=== PATIENT | female | born 1955 | race Caucasian/White ===

== ENCOUNTER 2020-08-29 07:16 | Day surgery (SDC) | payer BC ==
[2020-08-28 08:42] VITALS: BMI 26.6
[~2020-08-29 07:16] MED LIST: LACTATED RINGERS 1,000 ML IV SCH; LIDOCAINE 1% (10MG/ML) FOR IV START INTRADERMA PRN
[2020-08-29 07:44] VITALS: TEMP 97
[2020-08-29] MEDS ORDERED: PROPOFOL 10 MG/ML 20 ML VIAL IV ONE (08:12)
--- NOTE | 2020-08-29 08:39 | P.PCN ---
Date of Procedure: 08/29/20 Description of Procedure: BRIEF HISTORY: Patient is a 64-year-old female presenting for outpatient colonoscopy for screening for malignant neoplasm colon. Family history of colon cancer in paternal grandmother. No change in bowel habits rectum. Last colonoscopy was in 2014. PROCEDURE PERFORMED: Colonoscopy. PREOPERATIVE DIAGNOSIS: Screening for malignancy thousand, last colonoscopy 2014, family history of colon cancer. ESTIMATED BLOOD LOSS: Minimal. IV sedation per Anesthesia. PROCEDURE: After informed consent was obtained, the patient, was brought into the endoscopy unit. IV sedation was administered by Anesthesia under continuous monitoring. Digital rectal examination was normal. Initially the Olympus CF-190 flexible video colonoscope was then inserted in the rectum, gradually advanced into the cecum without any difficulty. Careful examination was performed as the scope was gradually being withdrawn. Ileocecal valve and the appendiceal orifice were visualized and appeared normal. Prep was excellent. Mucosa of the cecum, ascending colon, transverse colon, descending colon, sigmoid colon, and rectum appeared normal. Retroflexion was performed in the rectum and no lesions were seen. The patient tolerated the procedure well. IMPRESSION: Normal-appearing colon from rectum to cecum and normal appearing terminal ileum. RECOMMENDATIONS: Findings of this examination were discussed with the patient and her family. Okay to resume diet. Okay to resume medications. Recommend repeat colonoscopy in 5 years for family history of colon cancer.
[2020-08-29 08:46] VITALS: RESP 16
[2020-08-29 09:01] VITALS: BP 110/58; PULSE 78
== END 2020-08-29 09:18 | disposition home or self-care (01) ==
LOC: ORWHC2ENDO 07:16
PROVIDERS: ATTEND Internal Medicine
DX: Z12.11 Encounter for screening for malignant neoplasm of colon (principal); Z86.010 Personal history of colon polyps; Z80.0 Family history of malignant neoplasm of digestive organs; E89.0 Postprocedural hypothyroidism; Z88.8 Allergy status to other drugs, medicaments and biological substances; Z98.890 Other specified postprocedural states; Z79.890 Hormone replacement therapy
CPT/HCPCS: J2704; G0105

== ENCOUNTER 2020-12-29 07:15 | Day surgery (SDC) | payer BC ==
[2020-12-26 09:54] VITALS: BMI 26.6
[~2020-12-29 07:15] MED LIST changes: +ACETAMINOPHEN TAB 500 MG TAB PO PRN; +DEXAMETHASONE SOD PHOSPHATE 4 MG/ML 1 ML VIAL IV ONE; +HEPARIN SODIUM,PORCINE/PF 5,000 UNIT/0.5 ML SYRINGE SQ PRN; +HYDROmorphone 0.5 MG/0.5 ML SYRINGE IVP PRN; +MIDAZOLAM 2 MG/2 ML VIAL IV PRN; +ONDANSETRON 4 MG/2 ML VIAL IVP ONE; +Pre Op ABX Message 1 EACH MISC MISCELLANE ONE
[2020-12-29] MEDS ORDERED: LIDOCAINE 1% INJ 10MG/ML (20 ML MDV) SQ ONE ×3 (08:50→11:17)
[2020-12-29 09:09] VITALS: TEMP 98.8
[2020-12-29] MEDS ORDERED: PROPOFOL 10 MG/ML 20 ML VIAL IV ONE (10:58)
[2020-12-29] MEDS ORDERED: MIDAZOLAM 2 MG/2 ML VIAL ONE (10:58)
[2020-12-29] MEDS ORDERED: fentaNYL (PF) 50 MCG/ML 2 ML AMP ONE (10:58)
[2020-12-29] MEDS ORDERED: SODIUM CHLORIDE 0.9% 100 ML with ceFAZolin 2,000 MG IV ONE ×2 (11:17)
[2020-12-29] MEDS ORDERED: NALOXONE 0.4 MG/ML 1 ML VIAL IV PRN (11:45)
--- NOTE | 2020-12-29 11:49 | P.OP ---
Date of Procedure: 12/29/20 Procedure(s) Performed: PREOPERATIVE DIAGNOSIS: Abnormal right mammogram POSTOPERATIVE DIAGNOSIS: Same PROCEDURE: Right Breast wire localization biopsy SURGEON: Blanche EBL: Minimal ANESTHESIA: Sedation plus local COMPLICATIONS: None OPERATIVE PROCEDURE: Patient was placed on the operating room table in the s upine position. The patient's breast was prepped and draped in usual sterile fashion. A curvilinear incision was made adjacent to the wire entrance site. I followed the wire down into the breast tissue. The breast tissue around the tip of the wire was fully excised using electrocautery. The specimen was sent for specimen radiogram. The clip was present within the specimen. The subcutaneous tissues were inspected. No bleeding was seen. The subcutaneous tissues were closed using 3-0 Vicryl sutures. The skin was closed using a running 4-0 Monocryl stitch. Skin glue and sterile dressings were applied. DISPOSITION: Stable to recovery room
[2020-12-29 11:51] VITALS: RESP 18
[2020-12-29 12:14] VITALS: BP 131/76; PULSE 78
--- NOTE | 2020-12-29 16:56 | MM ---
EXAMINATION TYPE: MG pre op needle loc RT, MG surgical specimen RT DATE OF EXAM: 12/29/2020 COMPARISON: 09/20/2020, 09/21/2020 CLINICAL HISTORY: 65-year-old female referred for right breast needle localization for high risk flat epithelial atypia and ADH. TECHNIQUE: Needle localization with wire placement and surgical excision of area of concern in the right breast. FINDINGS: The procedure of needle localization with wire placement and than surgical excision was explained to the patient. Benefits, alternatives, and risks were discussed. An informed consent was then obtained. The shortest pathway for procedure was chosen. Shortest pathway was a superior approach. The overlying skin was prepped and draped in usual sterile fashion. Lidocaine was used as anesthetic into the skin and subcutaneous tissue up to the level of area of concern. A 5 cm needle was used. It was placed via a superior approach under mammographic guidance. Subsequent 90 degrees mammogram show the needle to be in satisfactory position relative to the targeted clip. At this point, wire was placed and the needle was withdrawn. The wire was fixed to patient's skin. Images were marked for surgeon. The patient tolerated the procedure well without any immediate complication. The patient was kept in the radiology department for short stay after the procedure and then taken to surgery for surgical excision. Targeted clip, some scattered punctate calcifications, and wire are identified in specimen mammogram. The patient was kept in hospital for short stay after the procedure and then discharged home in stable condition. IMPRESSION: Successful, uncomplicated needle localization with wire placement and surgical excision of the region of biopsy-proven high risk lesions in the 12:00 right breast. Full pathology results to follow. Pathology Results: Benign RIGHT BREAST, NEEDLE LOCALIZATION EXCISION: Focal flat epithelial atypia (FEA), margins negative. Background fibrocystic changes including sclerosing adenosis with calcifications and previous biopsy site. Recommendation Follow up mammogram of the right breast in 6 months. SAMANTHA
== END 2020-12-29 12:54 | disposition home or self-care (01) ==
LOC: OR 07:15
PROVIDERS: ATTEND Surgery
DX: N60.11 Diffuse cystic mastopathy of right breast (principal); R92.1 Mammographic calcification found on diagnostic imaging of breast; R92.8 Other abnormal and inconclusive findings on diagnostic imaging of breast; Z98.890 Other specified postprocedural states; E89.0 Postprocedural hypothyroidism; Z80.3 Family history of malignant neoplasm of breast; Z83.3 Family history of diabetes mellitus; Z79.890 Hormone replacement therapy; Z88.8 Allergy status to other drugs, medicaments and biological substances
CPT/HCPCS: 19125; 88307; 76098; 19281; J2250; J1100; J2405; J0690; J2001; J3010; J2704; J1644

== ENCOUNTER → 2021-07-18 | Outpatient (CLI) | payer BC ==
--- NOTE | 2021-07-18 13:33 | MM ---
Reason for exam: additional evaluation requested from prior study. Last mammogram was performed 12 years and 3 months ago. History: Patient is postmenopausal, has history of high-risk lesion on a previous biopsy at age 64, and had first child at age 32. Family history of breast cancer in paternal cousin and breast cancer in maternal grandmother. Benign MG pre op needle loc RT of the right breast, December 29, 2020. Physical Findings: Nurse did not find any significant physical abnormalities on exam. MG 3D Diag Mammo W/Cad AAMIR Bilateral CC with magnification, LM with magnification, XCCL, and LM view(s) were taken. Prior study comparison: April 17, 2009, bilateral digital screening mammogram. March 17, 2008, bilateral digital screening mammogram. The breast tissue is heterogeneously dense. This may lower the sensitivity of mammography. Some new subtle distortion central 12 o'clock right breast likely surgical scar. Small group of calcifications central 7 o'clock right do not persist on magnification views. Grouped central calcifications left breast persists and are indeterminate. Biopsy recommended. These results were verbally communicated with the patient and result sheet given to the patient on 07/18/21. ASSESSMENT: Suspicious, BI-RAD 4 RECOMMENDATION: Stereotactic core biopsy of the left breast. (calcifications) Called office with mammographic findings and has scheduled an appointment for the patient for 09/06/21 at 11:[address] Mancia. Biopsy scheduled for 08/10/21 at 8:00. PRELIMINARY REPORT CALLED AND FAXED TO DR. MANCIA ON 07/18/21.
== END | disposition home or self-care (01) ==
LOC: RADMAMWWP 09:19
PROVIDERS: ATTEND Surgery
DX: R91.1 Solitary pulmonary nodule (principal); Z80.3 Family history of malignant neoplasm of breast
CPT/HCPCS: 77062; 77066

== ENCOUNTER → 2021-08-10 | Day surgery (SDC) | payer BC ==
[2021-08-10 07:32] VITALS: RESP 16
[2021-08-10 08:44] VITALS: BP 125/76; PULSE 66; TEMP 98
--- NOTE | 2021-08-10 09:49 | MM ---
EXAMINATION TYPE: MG stereo VAD BX LT DATE OF EXAM: 08/10/2021 COMPARISON: Prior mammogram July 18, 2021 and older studies CLINICAL HISTORY: Abnormal mammogram TECHNIQUE: Stereotactic guided core biopsy of left breast with clip placement and follow-up diagnostic 2 view mammogram. FINDINGS: The procedure of stereotactic guided core biopsy was explained to the patient. Benefits, alternatives, and risks were discussed. An informed consent was then obtained. The [facility] pathway for biopsy was chosen. Shortness pathway was medial approach. I performed the localization, then performed the remainder of the procedure. Overlying skin is cleansed with Betadine. Lidocaine is used as anesthetic. A vacuum assisted biopsy gun was used to obtain multiple core samples. The patient tolerated the procedure well without any immediate complication. The patient was kept in the radiology department for short stay after the procedure and then discharged home in stable condition. Targeted calcifications are identified in specimen mammogram. Post biopsy mammogram shows the clip to appear in satisfactory position relative to the targeted area of concern on the preprocedure images. IMPRESSION: SUCCESSFUL, UNCOMPLICATED STEREOTACTIC GUIDED CORE BIOPSY OF AREA OF CONCERN IN THE LEFT BREAST, FULL PATHOLOGY RESULTS TO FOLLOW. Low to intermediate index of suspicion noted at time of procedure. Pathology Results: High Risk LEFT BREAST, STEREOTACTIC CORE BIOPSY: Intraductal papilloma with calcifications. Background fibrocystic changes including sclerosing adenosis with calcifications, cysts, moderate usual type ductal hyperplasia, columnar cell change/columnar cell hyperplasia and apocrine metaplasia. Recommendation Surgical consult of the left breast. (consider open biopsy) MATTHEWD
== END ==
LOC: RADMAMWWP 07:01
PROVIDERS: ATTEND Surgery
DX: D24.2 Benign neoplasm of left breast (principal); N60.12 Diffuse cystic mastopathy of left breast; R92.1 Mammographic calcification found on diagnostic imaging of breast; N62 Hypertrophy of breast; N60.82 Other benign mammary dysplasias of left breast; R92.8 Other abnormal and inconclusive findings on diagnostic imaging of breast; Z88.8 Allergy status to other drugs, medicaments and biological substances
CPT/HCPCS: 88305; 19081; A4648; J2001

== ENCOUNTER 2021-09-03 06:15 | Day surgery (SDC) | payer BC ==
[2021-08-31 10:27] VITALS: BMI 25.4
[~2021-09-03 06:15] MED LIST changes: -DEXAMETHASONE SOD PHOSPHATE 4 MG/ML 1 ML VIAL IV ONE; -HYDROmorphone 0.5 MG/0.5 ML SYRINGE IVP PRN; -LACTATED RINGERS 1,000 ML IV SCH; -LIDOCAINE 1% (10MG/ML) FOR IV START INTRADERMA PRN; -MIDAZOLAM 2 MG/2 ML VIAL IV PRN; -ONDANSETRON 4 MG/2 ML VIAL IVP ONE
[2021-09-03] MEDS ORDERED: ONDANSETRON 4 MG/2 ML VIAL ONE (07:17)
[2021-09-03] MEDS ORDERED: LACTATED RINGERS 1,000 ML IV ONE (07:23)
[2021-09-03] MEDS ORDERED: LACTATED RINGERS 1,000 ML IV SCH (07:29)
[2021-09-03] MEDS ORDERED: DEXAMETHASONE SOD PHOSPHATE 4 MG/ML 1 ML VIAL IV ONE (07:29)
[2021-09-03] MEDS ORDERED: .fentaNYL (PF) 50 MCG/ML 2 ML AMP IV PRN (07:29)
[2021-09-03] MEDS ORDERED: ONDANSETRON 4 MG/2 ML VIAL IVP ONE (07:29)
[2021-09-03] MEDS ORDERED: ALPRAZolam 0.25 MG TAB PO PRN (07:29)
[2021-09-03] MEDS ORDERED: ALPRAZolam 0.25 MG TAB PO ONE (07:32)
[2021-09-03] MEDS ORDERED: LIDOCAINE 1% INJ 10MG/ML (20 ML MDV) SQ ONE (07:48)
[2021-09-03 08:03] VITALS: TEMP 98.6
[2021-09-03] MEDS ORDERED: .fentaNYL (PF) 50 MCG/ML 2 ML AMP ONE (10:01)
[2021-09-03] MEDS ORDERED: MIDAZOLAM 2 MG/2 ML VIAL ONE (10:01)
[2021-09-03] MEDS ORDERED: BUPIVACAINE (PF) 0.25% 30 ML VIAL SQ ONE ×3 (10:28→10:33)
[2021-09-03 11:15] VITALS: RESP 18
[2021-09-03] MEDS ORDERED: NALOXONE 0.4 MG/ML 1 ML VIAL IV PRN (11:15)
--- NOTE | 2021-09-03 11:17 | P.OP ---
Date of Procedure: 09/03/21 Procedure(s) Performed: PREOPERATIVE DIAGNOSIS: Abnormal left mammogram POSTOPERATIVE DIAGNOSIS: Same PROCEDURE: Left Breast wire localization biopsy SURGEON: Blanche EBL: Minimal ANESTHESIA: Sedation plus local COMPLICATIONS: None OPERATIVE PROCEDURE: Patient was placed on the operating room table in the sup ine position. The patient's breast was prepped and draped in usual sterile fashion. A curvilinear incision was made adjacent to the areola. Dissection through the subcutaneous tissues took place until the wire was reached. I followed the wire down into the breast tissue. The breast tissue around the tip of the wire was fully excised using electrocautery. The specimen was sent for specimen radiogram. The clip was present within the specimen. The subcutaneous tissues were inspected. No bleeding was seen. The subcutaneous tissues were closed using 3-0 Vicryl sutures. The skin was closed using a running 4-0 Monocryl stitch. Skin glue was then applied. DISPOSITION: Stable to recovery room
--- NOTE | 2021-09-03 11:28 | MM ---
EXAMINATION TYPE: MG pre op needle loc LT, MG surgical specimen LT DATE OF EXAM: 09/03/2021 COMPARISON: Stereotactic guided core biopsy August 10, 2021 and older studies. CLINICAL HISTORY: High risk lesion, Intraductal papilloma on recent stereotactic guided core biopsy TECHNIQUE: Needle localization with wire placement and surgical excision of area of concern in the le ft breast. FINDINGS: The procedure of needle localization with wire placement and than surgical excision was exp lained to the patient. Benefits, alternatives, and risks were discussed. An informed consent was th en obtained. The shortest pathway for procedure was chosen. Shortest pathway was medial approach. The overlying s kin was prepped and draped in usual sterile fashion. Lidocaine is used as anesthetic into the skin an d subcutaneous tissue up to the level of area of concern. A 7 cm needle was used. It was placed via a medial approach under mammographic guidance. Subsequent 90 degrees mammogram show the needle to b e in satisfactory position relative to the targeted area. At this point, wire was placed and the nee dle was withdrawn. The wire was fixed to patient's skin. Images were marked for surgeon. The patient tolerated the procedure well without any immediate complication. The patient was kept in the radiology department for short stay after the procedure and then taken to surgery for surgical e xcision. Targeted biopsy clip and wire are identified in specimen mammogram. The patient was kept i hospital for short stay after the procedure and then discharged home in stable condition. IMPRESSION: Successful, uncomplicated needle localization with wire placement and surgical excision o f targeted biopsy clip in the left breast, full pathology results to follow.
[2021-09-03 11:29] VITALS: BP 117/70; PULSE 55
== END 2021-09-03 11:41 | disposition home or self-care (01) ==
LOC: OR 06:15
PROVIDERS: ATTEND Surgery
DX: R92.8 Other abnormal and inconclusive findings on diagnostic imaging of breast (principal)
CPT/HCPCS: 19281; 76098; C1819; J2250; J1100; J2405; J2001; J3010; J1644

== ENCOUNTER → 2022-02-25 | Outpatient (CLI) | payer BC ==
--- NOTE | 2022-02-25 15:36 | MM ---
Reason for Exam: Follow-up at short interval from prior study. Last screening mammogram was performed 7 month(s) ago. Patient History: Menarche at age 18. First Full-Term at age 32. Late child-bearing (after 30). Postmenopausal. 09/03/2021, Lumpectomy on the Left side. 09/03/2021, High risk Core Biopsy on the left side. 08/10/2021, High risk Core Biopsy on the left side. 12/29/2020, Benign Core Biopsy on the right side. Maternal grandmother had breast cancer. Paternal cousin had breast cancer. Risk Values: Carmen 5 year model risk: 3.1%. NCI Lifetime model risk: 11.5%. Prior Study Comparison: 03/17/2008 Bilateral Screening Mammogram, [facility]. 04/17/2009 Bilateral Screening Mammogram, [facility]. 07/18/2021 Bilateral Diagnostic Mammogram, [facility]. Tissue Density: Left: The breast tissue is heterogeneously dense. This may lower the sensitivity of mammography. Findings: Analyzed By CAD. Postbiopsy changes left breast. No suspicious calcifications or masses. Overall Assessment: Benign, BI-RAD 2 Management: Screening Mammogram of both breasts in 6 months. A clinical breast exam by your physician is recommended on an annual basis and results should be correlated with mammographic findings. This exam should not preclude additional follow-up of suspicious palpable abnormalities. Results were given to the patient verbally at the time of exam. Electronically signed and approved by: Maikel Oliveira M.D. Radiologis
== END | disposition home or self-care (01) ==
LOC: RADMAMWWP 14:58
PROVIDERS: ATTEND Surgery
DX: R92.8 Other abnormal and inconclusive findings on diagnostic imaging of breast (principal); Z78.0 Asymptomatic menopausal state; Z80.3 Family history of malignant neoplasm of breast
CPT/HCPCS: 77061; 77065

== ENCOUNTER → 2022-09-02 | Outpatient (CLI) | payer BC ==
--- NOTE | 2022-09-03 07:29 | MM ---
Reason for Exam: Screening (asymptomatic). Last mammogram was performed 1 year(s) and 1 month(s) ago. Patient History: Menarche at age 18. First Full-Term at age 32. Late child-bearing (after 30). Postmenopausal. Patient has history of breast feeding. 09/03/2021, Lumpectomy on the Left side. 09/03/2021, High risk Core Biopsy on the left side. 08/10/2021, High risk Core Biopsy on the left side. 12/29/2020, Benign Core Biopsy on the right side. Maternal grandmother had breast cancer, age 72. Paternal cousin had breast cancer, age 51. Risk Values: Carmen 5 year model risk: 3.1%. NCI Lifetime model risk: 11.5%. Prior Study Comparison: 04/17/2009 Bilateral Screening Mammogram, [facility]. 07/18/2021 Bilateral Diagnostic Mammogram, [facility]. 02/25/2022 Left MG 3D diag mammo w/cad LT, [facility]. Tissue Density: The breast tissue is heterogeneously dense. This may lower the sensitivity of mammography. Findings: Analyzed By CAD. There is no suspicious group of microcalcifications or new suspicious mass in either breast. Benign round calcifications within both breasts. Postbiopsy changes in the left breast. No significant change from prior exams. Overall Assessment: Benign, BI-RAD 2 Management: Screening Mammogram of both breasts in 1 year. A clinical breast exam by your physician is recommended on an annual basis and results should be correlated with mammographic findings. Electronically signed and approved by: Praveen Moreno D.O.
== END | disposition home or self-care (01) ==
LOC: RADMAMWWP 07:09
PROVIDERS: ATTEND Surgery
DX: Z12.31 Encounter for screening mammogram for malignant neoplasm of breast (principal); Z78.0 Asymptomatic menopausal state; Z80.3 Family history of malignant neoplasm of breast
CPT/HCPCS: 77063; 77067

== ENCOUNTER → 2023-09-03 | Outpatient (CLI) | payer BC, MEDICARE ==
--- NOTE | 2023-09-04 22:39 | MM ---
Reason for Exam: Screening (asymptomatic). Last screening mammogram was performed 12 month(s) ago. Patient History: Menarche at age 18. First Full-Term at age 32. Late child-bearing (after 30). Postmenopausal. Patient has history of breast feeding. 09/03/2021, Lumpectomy on the Left side. 09/03/2021, High risk Core Biopsy on the left side. 08/10/2021, High risk Core Biopsy on the left side. 12/29/2020, Benign Core Biopsy on the right side. Maternal grandmother had breast cancer, age 72. Paternal cousin had breast cancer, age 51. Risk Values: Carmen 5 year model risk: 3.2%. NCI Lifetime model risk: 11.1%. Prior Study Comparison: 07/18/2021 Bilateral Diagnostic Mammogram, [facility]. 02/25/2022 Left MG 3D diag mammo w/cad LT, [facility]. 09/02/2022 Bilateral MG 3D screening mammo w/cad, [facility]. Tissue Density: The breast tissue is heterogeneously dense. This may lower the sensitivity of mammography. Findings: Analyzed By CAD. There is no suspicious group of microcalcifications or new suspicious mass in either breast. Overall Assessment: Negative, BI-RAD 1 Management: Screening Mammogram of both breasts in 1 year. See note below in regards to patient's increased 5 year Carmen score. Patient should continue monthly self-breast exams. A clinical breast exam by your physician is recommended on an annual basis. This exam should not preclude additional follow-up of suspicious palpable abnormalities. Note on Carmen scores and lifetime risk: 1. A Carmen score greater than 3% is considered moderate risk. If this is the case, consider specialist referral to assess eligibility for a risk reducing agent. 2. If overall lifetime risk for the development of breast cancer is 20% or higher, the patient may qualify for future screening with alternating mammogram and breast MRI. Electronically signed and approved by: Melia Thomas M.D. Radiologist
== END | disposition home or self-care (01) ==
LOC: RADMAMWWP 07:55
PROVIDERS: ATTEND Surgery
DX: Z12.31 Encounter for screening mammogram for malignant neoplasm of breast (principal); Z78.0 Asymptomatic menopausal state; Z80.3 Family history of malignant neoplasm of breast
CPT/HCPCS: 77063; 77067